=== PATIENT | female | born 1955 | race American Indian/Alaskan Native ===

== ENCOUNTER 2017-08-06 11:44 | Outpatient (CLI) | payer OTHER ==
--- NOTE | 2017-08-06 16:38 | PET Report ---
PET/CT:08/06/17 11:44:00 CLINICAL: Newly diagnosed right breast cancer. RADIOPHARMACEUTICAL: 14.4mCi F18-FDG. COMPARISON: 07/16/17 bilateral mammogram and right breast ultrasound. TECHNIQUE- Following intravenous injection of F-18 FDG and an approximately 60 minute uptake period, CT and PET images from the mid skull to the upper thighs were acquired with the patient in the fasted state. No contrast was administered. The CT protocol used for this PET CT study is designed for attenuation correction and anatomic localization of PET abnormalities. This instructional materials director CT is not desired to produce and cannot replace, xmwar-rl-hiq-art diagnostic CT scans with specific imaging protocols for different body parts and indications. Plasma glucose at the time of this test: 73g/dl. The standardized uptake values (SUV) are normalized to patient body weight and indicate the highest activity concentration (SUV max) in a given disease site. FINDINGS: Brain--Physiologic FDG uptake in the visualized regions of the brain. Neck--Physiologic FDG uptake in mucosal structures. Chest--A 2.7 x 2.5 cm FDG avid retroareolar breast mass with a biopsy clip and SUV 6.2 corresponds to the known breast cancer. A second more posterior and slightly lateral mass measures 2.3 x 1.5 cm with SUV 2.9. A more superior and lateral irregular FDG avid mass measures 2.3 x 1.6 cm with a CV 3.3. A 9 mm non-FDG avid mass at the inframammary fold. Physiologic FDG uptake in mediastinal blood pool and myocardium. Lungs--No abnormal uptake. No pulmonary nodule or mass. Pleura/pericardium--No abnormal uptake. Thoracic nodes--A 2.0 x 1.5 cm FDG avid right axillary lymph node with a CV 2.9 correlates with the biopsy proven right axillary marc metastasis. No other suspicious lymph nodes. Hepatobiliary--No abnormal uptake. Liver background SUV mean, as a reference for comparing FDG studies, is 3.0 . No liver mass. Spleen--No abnormal uptake. Pancreas--No abnormal uptake. Adrenal Glands--No abnormal uptake. Kidneys/Ureters/Bladder--No abnormal uptake. Abdominopelvic Nodes--No abnormal uptake. Bowel/Peritoneum/Mesentery--No abnormal uptake. Pelvic organs--No abnormal uptake. Bones/Soft Tissues--No abnormal uptake. No suspicious lesion. IMPRESSION- 1. Multicentric right breast cancer with right axillary marc metastasis. 2. No evidence of pulmonary, hepatic or skeletal metastasis.
== END 2017-08-06 11:45 | disposition home or self-care (01) ==
LOC: PET 11:44
PROVIDERS: ATTEND Surgery
DX: C79.89 Secondary malignant neoplasm of other specified sites (principal); C50.511 Malignant neoplasm of lower-outer quadrant of right female breast; Z79.899 Other long term (current) drug therapy
CPT/HCPCS: 78815; 82962; A9552

== ENCOUNTER 2017-08-13 13:24 | Outpatient (CLI) | payer OTHER ==
--- NOTE | 2017-08-14 12:58 | Magnetic Resonance Report ---
BILATERAL BREAST MRI WITHOUT AND WITH CONTRAST: 08/13/17 13:24:00 CLINICAL: Newly diagnosed right breast cancer and biopsy proven right axillary lymph node metastasis. COMPARISON:07/16/17 bilateral mammogram and right breast ultrasound. TECHNIQUE: Axial 1.0-mm T1 without, axial high resolution 2.0-mm T2 and axial 1.0-mm dynamic Vibrant high-resolution postcontrast T1 fat saturation sequences on a 1.5 Marivel magnet. The examination was performed with an 8 channel dedicated [employer] breast coil. Post processing with CAD and subtraction was performed on an [employer] workstation. 16.0 cc of Multihance was injected without incident via a right hand vein 22-gauge INT for the contrast portion of the exam. Consent was obtained prior to the administration of the contrast. FINDINGS: Right: Mild background parenchymal enhancement. The known cancer is an irregular retroareolar enhancing mass approximately 1.3 cm from the nipple. It measures 3.9 x 3.4 x 2.5 cm and demonstrates heterogeneous enhancement with mixed kinetics, 115% peak enhancement and 7% type III washout. The mass extends to thickened skin at the nipple. However, no enhancement of the skin. A second highly suspicious mass in the upper outer quadrant 7.4 cm from the nipple measures 2.0 x 1.6 x 1.3 cm. The mass is irregular and demonstrates heterogeneous enhancement with mixed kinetics, 232% peak enhancement and 29% type III washout. This second mass is identified by mammography and by ultrasound and is approximately 6 cm from the known cancer. A third mass lies between the known cancer and lesion 2. It is an oval relatively smooth enhancing mass 4.5 cm from the nipple measuring 2.7 x 1.9 x 1.4 cm. It demonstrates heterogeneous enhancement with mixed kinetics, 232% peak enhancement and 29% type III washout. Several smaller additional highly suspicious masses are identified in the right breast. A 1.7 x 1.3 cm right axillary lymph node correlates with the known metastatic lymph node and there is at least one additional suspicious right axillary lymph node. No abnormal internal mammary lymph nodes. Left: Mild background parenchymal enhancement. No mass or suspicious enhancement. No suspicious lymph nodes. IMPRESSION: 1. Multicentric right breast cancer with a dominant 3.9 cm retroareolar cancer and at least four additional highly suspicious masses of the right breast. 2. Right axillary marc metastasis. 3. Negative left breast. RIGHT BI-RADS 6 -- Known Cancer LEFT BI-RADS 1 -- Negative
== END 2017-08-13 13:25 | disposition home or self-care (01) ==
LOC: SPVIMAG 13:24
PROVIDERS: ATTEND Surgery
DX: C79.89 Secondary malignant neoplasm of other specified sites (principal); C50.511 Malignant neoplasm of lower-outer quadrant of right female breast
CPT/HCPCS: A9577; C8908; 77059

== ENCOUNTER 2017-08-25 08:32 | Day surgery (SDC) | payer OTHER ==
[~2017-08-25 08:32] MED LIST: HEPARIN 10,000 UNITS/10 ML IV ONE
[2017-08-25] MEDS ORDERED: NACL BACTERIOSTATIC INFILTRATI ONE (09:21)
--- NOTE | 2017-08-25 09:26 | Anesthesia Consultation ---
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
[2017-08-25 09:45] LABS: Basophils % (Auto) 0.5 % (0.0-1.8); Eosinophils # (Auto) 0.1 K/mm3 (0.0-0.4); Hematocrit 44.3 % (30.3-42.9); Hemoglobin 14.3 gm/dl (10.1-14.3); Lymphocytes # (Auto) 0.9 K/mm3 (1.2-5.4); Lymphocytes % (Auto) 11.8 % (13.4-35.0); Mean Corpuscular HGB Conc 32 % (30-34); Mean Corpuscular Hemoglobin 32 pg (28-32); Mean Corpuscular Volume 99 fl (79-97); Monocytes # (Auto) 0.8 K/mm3 (0.0-0.8); Monocytes % (Auto) 10.4 % (0.0-7.3); Platelet Count 225 K/mm3 (140-440); Red Blood Count 4.48 M/mm3 (3.65-5.03); Red Cell Distribution Width 13.6 % (13.2-15.2)
[2017-08-25] MEDS ORDERED: NACL ONE (09:49)
[2017-08-25] MEDS ORDERED: XYLOCAINE 1% 20 mL ONE (09:49)
[2017-08-25] MEDS ORDERED: HEPARIN 10,000 UNITS/10 ML ONE (09:50)
[2017-08-25] MEDS ORDERED: MARCAINE 0.25% INFILTRATI ONE ×3 (09:50→10:30)
[2017-08-25] MEDS ORDERED: ANCEF/STERILE WATER 2 GM/20 ML IV NR (10:00)
[2017-08-25] MEDS ORDERED: LACTATED RINGERS 1,000 ML IV SCH (10:00)
[2017-08-25] MEDS ORDERED: VERSED IV NR (10:00)
[2017-08-25] MEDS ORDERED: DILAUDID ONE (10:06)
[2017-08-25] MEDS ORDERED: DIPRIVAN 10 MG/ML IV ONE (10:06)
[2017-08-25] MEDS ORDERED: XYLOCAINE 1% 20 mL INFILTRATI ONE ×2 (10:30)
[2017-08-25] MEDS ORDERED: NACL 0.9% IV ONE (10:49)
[2017-08-25] MEDS ORDERED: HEPARIN 10,000 UNITS/10 ML IV ONE ×2 (10:49→11:01)
[2017-08-25] MEDS ORDERED: XYLOCAINE MPF 2% ONE (11:01)
--- NOTE | 2017-08-25 11:23 | Short Stay Summary ---
Short Stay Documentation Date of service: 08/25/17 Narrative H&P: 62 yo F with newly diagnosed right breast cancer presents for port placement. She has no complaints. - History Principal diagnosis: right breast cancer H&P: obtained from office - Allergies and Medications Current Medications: Allergies No Known Allergies Allergy (Verified 08/25/17 08:59) Home Medications Medication Instructions Recorded Confirmed Last Taken Type Carvedilol [Coreg] 3.125 mg PO BID 08/25/17 08/25/17 08/25/17 07:00 History Active Medications Cefazolin Sodium (Ancef/Sterile Water 2 Gm/20 Ml) 2 gm IV PREOP NR Stop: 08/25/17 16:00 Lactated Ringer's (Lactated Ringers) 1,000 mls @ 75 mls/hr IV DIRECT INOCENTE Last Admin: 08/25/17 09:53 Dose: 75 mls/hr Midazolam HCl (Versed) 2 mg IV PREOP NR Stop: 08/25/17 23:59 Last Admin: 08/25/17 09:54 Dose: 2 mg - Brief post op/procedure progress note Date of procedure: 08/25/17 Pre-op diagnosis: right breast cancer Post-op diagnosis: same Procedure: left subclavian port placement with ultrasound guidance Anesthesia: MAC, local Findings: good blood flow from port, good placement of port on post op CXR, no PTX Surgeon: SIMONE SMITH Estimated blood loss: minimal Pathology: none Condition: stable - Hospital course Hospital course: The patient was observed in the recovery room and discharged when criteria was met. - Disposition Condition at discharge: Good Disposition: DC-01 TO HOME OR SELFCARE Short Stay Discharge Plan Activity: no restrictions Diet: regular Wound: open to air, other (May shower tomorrow, Pat incisions dry. Do not scrub incisions. Do not submerge incisions in water until healed.) Additional Instructions: Call surgeon's office if you have fevers greater than 100.4, drainage or redness around her incisions. Take [id number] Tylenol or ibuprofen for incisional pain as directed on the bottle. If your pain is not controlled with [id number] pain medications, please call your surgeon's office. Follow up with: TAMMI CUNHA MD [Primary Care Provider] - 7 Days RAN ANTON MD [Staff Physician] - 7 Days
--- NOTE | 2017-08-25 11:25 | Operative Report ---
Operative Report Operative Report: Date of operation: 08/25/17 Reoperative diagnosis: Right-sided breast cancer Postoperative diagnosis: Same as above Procedure performed: Placement of left subclavian Port-A-Cath with ultrasound- guided Surgeon: Dorcas Pa DO Anesthesia: MAC, local Findings: On intraoperative CXR - good placement of port and no PTX EBL: <10cc Complications: none Disposition: stable to PACU HPI and indication: Patient is a 62-year-old female who has recently been diagnosed with right-sided breast cancer. The patient is seen by Dr. Ellison and oncology as an outpatient and deemed a candidate for chemotherapy. All of the risks associated with the procedure were discussed with the patient including but not limited to pneumothorax, infection, bleeding, malpositioned port, injury to other structures. The patient understands and all questions were answered. Consent was signed and placed on chart. The patient does have psoriasis involving her upper chest and neck area. She states that this is a long-term issue. Procedure in detail: The patient was identified in the preoperative area, taken back to operating room, placed on operating table in supine position. After anesthesia was induced both arms were tucked and upper chest and neck were scrubbed with chlorhexidine soap and water and then prepped and draped in usual sterile fashion. A timeout was performed. The was placed in Trendelenburg position. Local anesthetic was infiltrated into the skin at the intended puncture site. The left subclavian vein was visualized using ultrasound guidance and accessed on the first stick. There was return of dark red, nonpulsatile blood. The wire was threaded under fluoroscopy without resistance and positioning confirmed. The needle was then removed. Using a 15 blade, an incision was made in the LEFT upper chest and dissection carried down through the skin and subcutaneous tissue using Bovie electrocautery. Hemostasis was achieved along the way. A pocket for the port was then created bluntly and with electrocautery. The catheter was flushed and tunneled from the pocket to the wire. A breakaway catheter/dilator sheath then inserted over the wire under fluoroscopy, and the wire and dilator removed. The catheter was then inserted through the breakaway catheter which was then removed. The catheter sat flush under the skin. Using continuous fluoroscopy, the catheter was pulled back until the tip was visualized in the right atrium. The catheter was then cut to size and the port attached in the usual fashion. The port was then sutured into place to the pre-pectoral fascia using 2-0 Vicryl interrupted sutures. The wound was irrigated and hemostasis ensured. The port was tested with heparinized saline and there was return of blood and it flushed easily. The port was then instilled with 3000 units of heparin. The deep dermal layer was then closed with interrupted 3-0 Vicryl stitches. The skin incisions were closed with 4-0 Monocryl subcuticular stitches and skin glue. Intraoperative chest x-ray did show good positioning of the port, without evidence of pneumothorax. At the end of the case, all sponge, instrument, sharp counts were correct 2. The patient was awoken from anesthesia and taken to PACU in stable condition
--- NOTE | 2017-08-25 13:23 | Fluoroscopy Report ---
Portable chest: Tube placement. A port placement via the left subclavian vein is noted with the tip in the right atrium. The lungs are fully inflated and clear of any infiltrate. The heart is normal in size. Impression: Port placement without complication.
[2017-08-25 13:27] VITALS: BP 146/78
--- NOTE | 2017-08-25 16:37 | Post Anesthesia Evaluation ---
- Post Anesthesia Evaluation Patient Participated: Yes Airway Patent: Yes Stable Respiratory Function: Yes Nausea/Vomiting: No Temp > 96.8F: Yes Pain Manageable: Yes Adequeate Hydration: Yes Patient on Ventilator: No
== END 2017-08-25 12:30 | disposition home or self-care (01) ==
LOC: OR 08:32
PROVIDERS: ATTEND Surgery
DX: C50.511 Malignant neoplasm of lower-outer quadrant of right female breast (principal); J45.909 Unspecified asthma, uncomplicated; M19.90 Unspecified osteoarthritis, unspecified site; F17.210 Nicotine dependence, cigarettes, uncomplicated; Z17.0 Estrogen receptor positive status [ER+]
CPT/HCPCS: 36415; 36561; 77001; 85025; C1788; J0690; J1170; J1644; J2250; J2704; J7120